=== PATIENT | male | born 1965 | race Caucasian/White ===

== ENCOUNTER 2017-10-31 04:23 | Emergency (ER) | payer OTHER ==
[~2017-10-31] VITALS: Ht 175.3 cm; Wt 91.2 kg
[~2017-10-31 04:23] MED LIST: ASPI325 PO; ASPI81CH; CYCL10; CYCL10 PO; HYDACE5 PO; Hydrocodone-Ap1 EA23 PO; KETO50 PO; MIRT15; MIRT30ST MM; Metoprolol Succ25 MG; NAPR500 PO; PENVK500 PO; RISP.25; RISP1 PO; RISP2 PO; RXCLIN PO; RXHYD5325 PO; RXOXYACE PO; RXPENVK250 PO; VENL25; VENL75ER PO
== END 2017-10-31 07:59 | disposition left against medical advice (07) ==
LOC: ER 04:23
DX: I74.3 Embolism and thrombosis of arteries of the lower extremities (principal); F32.9 Major depressive disorder, single episode, unspecified; F17.210 Nicotine dependence, cigarettes, uncomplicated; Z79.899 Other long term (current) drug therapy; Z79.82 Long term (current) use of aspirin
CPT/HCPCS: 99283

== ENCOUNTER 2017-11-20 17:32 | Emergency (ER) | payer OTHER ==
[~2017-11-20] VITALS: Ht 180.3 cm; Wt 83.0 kg
== END 2017-11-20 18:07 | disposition home or self-care (01) ==
LOC: ER 17:32
DX: R79.1 Abnormal coagulation profile (principal); F32.9 Major depressive disorder, single episode, unspecified; F17.210 Nicotine dependence, cigarettes, uncomplicated; Z79.899 Other long term (current) drug therapy; Z79.82 Long term (current) use of aspirin
CPT/HCPCS: 96372; 99283; J3430

== ENCOUNTER → 2020-05-01 | Outpatient (CLI) | payer OTHER, SELFPAY ==
[~2020-05-01] MED LIST changes: +ACET325; +ALBU90OI INH; +AMOCLA875 PO; +ASCO500 PO; +ATOR20 PO; +CLIN150 PO; +CLOP75 PO; +Colace100 MG PO; +Colace250 MG PO; +Coumadin3 MG PO; +ENOX100I SC; +FERROCITE324 MG PO; +FERROUS SULFAT325 M3 PO; +FERSU300 PO; +HYDCHL25 PO; +HYDR1TAB94 PO; +IBUP600 PO; +IRON18 MG PO; +METAMUCIL POWD575 GM PO; +METO100 PO; +METO100ER PO; +MIRT15 PO; +NICO21TP TOP; +OPTIFIBER PO; +PREPARATION H C26 GM TOP; +Percocet 5-3251 EACH PO; +RISP.5 PO; +VENL25 PO; +WARF3 PO; +WARF5 PO
[2020-05-01 17:53] LABS: Source, Urine Voided
[2020-05-01 19:05] LABS: Appearance, Urine Turbid (Clear); Bilirubin, Urine Neg (Neg); Blood, Urine 5+ (Neg); Color, Urine Amber (P-Yellow); Glucose Qualitative, Urine Neg (Neg); Ketones, Urine 1+ (Neg); Leukocyte Esterase, Urine 2+ (Neg); Nitrite, Urine Neg (Neg); Protein, Urine 3+ (Neg); Urobilinogen, Urine NORM (Normal)
[2020-05-01 19:25] LABS: Bacteria Many /hpf; Red Blood Cells, Urine TNTC /hpf (0-2); Squamous Epithelial Cells Not Seen /hpf (Few)
== END | disposition home or self-care (01) ==
LOC: LAB SHORT 17:51 → LAB 17:51
PROVIDERS: Family Medicine
DX: R10.2 Pelvic and perineal pain (principal); R31.9 Hematuria, unspecified
CPT/HCPCS: 81001; 87086; 87147

== ENCOUNTER 2020-07-17 14:38 | Emergency (ER) | payer MEDICARE, OTHER ==
[~2020-07-17] VITALS: Ht 177.8 cm; Wt 95.2 kg
[~2020-07-17 14:38] MED LIST changes: -ACET325; -ALBU90OI INH; -AMOCLA875 PO; -ASCO500 PO; -CLIN150 PO; -Colace100 MG PO; -Colace250 MG PO; -Coumadin3 MG PO; -ENOX100I SC; -FERROCITE324 MG PO; -FERROUS SULFAT325 M3 PO; -FERSU300 PO; -HYDCHL25 PO; -HYDR1TAB94 PO; -IBUP600 PO; -IRON18 MG PO; -METAMUCIL POWD575 GM PO; -METO100 PO; -MIRT15 PO; -NICO21TP TOP; -OPTIFIBER PO; -PREPARATION H C26 GM TOP; -Percocet 5-3251 EACH PO; -WARF5 PO
[2020-07-17 17:26] LABS: BASOPHILS ABSOLUTE AUTO 0.04 K/mm3 (0.00-0.23); BASOPHILS PERCENT AUTO 0 % (0-2); EOSINOPHILS ABSOLUTE AUTO 0.02 K/mm3 (0.00-0.68); EOSINOPHILS PERCENT AUTO 0 % (0-6); Hematocrit 43.8 % (37.0-53.0); Hemoglobin 14.9 g/dL (13.5-17.5); IMMATURE GRAN ABSOLUTE AUTO 0.02 K/mm3 (0.00-0.10); IMMATURE GRAN PERCENT AUTO 0 % (0-1); LYMPHOCYTES ABSOLUTE AUTO 1.43 K/mm3 (0.84-5.20); LYMPHOCYTES PERCENT AUTO 14 % (21-46); MONOCYTES ABSOLUTE AUTO 0.86 K/mm3 (0.16-1.47); MONOCYTES PERCENT AUTO 9 % (4-13); Mean Corpuscular HGB 29.4 pg (26.0-34.0); Mean Corpuscular Volume 87 fL (80-100); Mean Platelet Volume 9.7 fL (9.1-12.4); NEUTROPHILS ABSOLUTE AUTO 7.76 K/mm3 (1.96-9.15); NEUTROPHILS PERCENT AUTO 77 % (41-73); Platelet Count 305 K/mm3 (150-400); RDW Coefficient Variation 15.8 % (11.7-14.2); RDW Standard Deviation 49.9 fL (35.1-46.3); Red Blood Cell Count 5.06 M/mm3 (4.30-5.90); White Blood Cell Count 10.13 K/mm3 (4.00-11.30)
[2020-07-17 17:43] LABS: Alanine Aminotransfer (ALT/SGP 25 U/L (12-78); Albumin, Blood 3.5 g/dL (3.4-5.0); Albumin/Globulin Ratio 0.7 (0.8-1.8); Alk Phos 125 U/L (50-136); Anion Gap 7 mmol/L (6-16); Aspartate Aminotrans (AST/SGOT 16 U/L (12-37); Bilirubin, Total 0.8 mg/dL (0.1-1.0); Blood Urea Nitrogen 9 mg/dL (8-24); Bun/Creatinine Ratio 9.9 (12.0-20.0); CO2, Blood 26 mmol/L (21-32); Calcium, Blood 9.3 mg/dL (8.5-10.1); Chloride, Blood 100 mmol/L (98-108); Creatinine, Blood 0.91 mg/dL (0.60-1.20); Glomerular Filtration Rate >60 (60-); Glucose, Blood 63 mg/dL (70-99); Potassium, Blood 3.9 mmol/L (3.5-5.5); Sodium, Blood 133 mmol/L (136-145); Total Protein, Blood 8.5 g/dL (6.4-8.2)
[2020-07-17] MEDS ORDERED: HYDCHL25 PO (18:06)
[2020-07-17] MEDS ORDERED: ALBU90OI INH (18:07)
[2020-07-17] MEDS ORDERED: IRON18 MG PO (18:07)
[2020-07-17] MEDS ORDERED: Colace100 MG PO (18:07)
[2020-07-17] MEDS ORDERED: IBUP600 PO (21:36)
[2020-07-17] MEDS ORDERED: AMOCLA875 PO (21:36)
[2020-09-10] MEDS ORDERED: OPTIFIBER PO (13:00)
[2020-09-10] MEDS ORDERED: HYDR1TAB94 PO (13:00)
== END 2020-07-17 21:59 | disposition home or self-care (01) ==
LOC: ER 14:38
PROVIDERS: Emergency Medicine
DX: L02.01 Cutaneous abscess of face (principal); I10 Essential (primary) hypertension; E78.00 Pure hypercholesterolemia, unspecified; Z88.5 Allergy status to narcotic agent; Z79.01 Long term (current) use of anticoagulants; Z79.899 Other long term (current) drug therapy; Z87.891 Personal history of nicotine dependence
CPT/HCPCS: 36415; 70487; 80053; 85025; 96365; 96375; 99284-25; J0295; J1885; Q9967

== ENCOUNTER 2020-07-23 07:20 | Day surgery (SDC) | payer MEDICARE, SELFPAY ==
--- NOTE | 2020-07-22 13:51 | NUR ---
PT DID NOT SHOW FOR 1000 APPOINTMENT TODAY. SPOKE WITH PT ON THE PHONE. THERE IS SOME MISCOMMUNICATION WITH [facility]LER'S ORDERS TO THE PATIENT AND CHANDLER'S ORDERS TO OUR [facility]. PT FILLED A RX FOR LOVENOX AT [facility] TODAY AND DID PART OF HIS LOVENOX THIS MORNING AND THE OTHER PART TONIGHT. PT TOOK 5MG LOVENOX AT 1100 TODAY. PT STATES HE WAS INSTRUCTED TO DO THIS BY HIS DR. PT WAS ALSO ADVISED BY JA MORENO AT [facility] THAT HE IS TO COME TO [facility] FOR HIS INJECTIONS AND INR CHECKS. PT IS PLANNING TO COME INTO [facility] TOMORROW 07/23/20 AT 1000 FOR US TO DO HIS LABS AND LOVENOX ORDERED. RN TO CALL AND CLARIFY WITH CHANDLER FOR FUTURE APPOINTMENTS AFTER 07/23/20. PT APPRECIATIVE OF THE PLAN AND WILL BE HERE TOMORROW.
--- NOTE | 2020-07-22 14:02 | NUR ---
CALLED [facility] AND SPOKE WITH JA MORENO CARE MANAGEMENT FOR DR SHERLYN MONTALVO REGARDING PT NO SHOW AND THAT PT FILLED AN RX AND RECEIVED TWO INJECTIONS AND DOING THE INJECTIONS TODAY THEN PLANNING ON COMING TO [facility] TOMORROW FOR US TO ASSUME CARE OF PT'S LOVENOX BRIDGING AND INR CHECKS. JA MORENO VERIFIED THAT PT IS TO COME TO [facility]. PT WAS TOLD NOT TO FILL ANY RX'S THAT WAS THE ORIGNAL PLAN, BUT THAT PLAN LATER WAS CANCELLED PT CANNOT AFFORD RX THROUGH THE PHARMACY. WILL EDUCATE PT TOMORROW AT [facility] APPOINTMENT. WILL NOTIFY PT'S PCP.
[~2020-07-23 07:20] MED LIST changes: +ALBU90OI INH; +AMOCLA875 PO; +Colace100 MG PO; +HYDCHL25 PO; +IBUP600 PO; +IRON18 MG PO
[2020-07-23 10:11] LABS: Hematocrit 46.1 % (37.0-53.0); Hemoglobin 15.4 g/dL (13.5-17.5); Mean Corpuscular HGB 29.4 pg (26.0-34.0); Mean Corpuscular HGB Conc 33.4 g/dL (31.5-36.5); Mean Corpuscular Volume 88 fL (80-100); Mean Platelet Volume 9.5 fL (9.1-12.4); Platelet Count 345 K/mm3 (150-400); RDW Coefficient Variation 15.7 % (11.7-14.2); RDW Standard Deviation 50.8 fL (35.1-46.3); Red Blood Cell Count 5.23 M/mm3 (4.30-5.90); White Blood Cell Count 8.11 K/mm3 (4.00-11.30)
[2020-07-23 10:25] LABS: Anion Gap 6 mmol/L (6-16); Blood Urea Nitrogen 8 mg/dL (8-24); Bun/Creatinine Ratio 7.2 (12.0-20.0); CO2, Blood 31 mmol/L (21-32); Calcium, Blood 10.2 mg/dL (8.5-10.1); Chloride, Blood 101 mmol/L (98-108); Creatinine, Blood 1.11 mg/dL (0.60-1.20); Glomerular Filtration Rate >60 (60-); Glucose, Blood 103 mg/dL (70-99); International Normalized Ratio 1.19; Prothrombin Time Results 12.6 Sec (9.7-11.5); Sodium, Blood 138 mmol/L (136-145)
[2020-07-23] MEDS ORDERED: WARF5 PO (10:50)
[2020-07-23] MEDS ORDERED: ENOX100I SC (10:51)
[2020-07-23] MEDS ORDERED: MIRT15 PO (10:52)
[2020-07-23] MEDS ORDERED: METAMUCIL POWD575 GM PO (10:52)
--- NOTE | 2020-07-23 11:04 | NUR ---
INR RESULTS FAXED TO DR NAEEM WADSWORTH PT'S PCP FOR COUMADIN DOSE MONITORING.
[2020-07-24] MEDS ORDERED: ENOX100I SC (10:48)
[2020-09-10] MEDS ORDERED: OPTIFIBER PO (13:00)
[2020-09-10] MEDS ORDERED: HYDR1TAB94 PO (13:00)
== END 2020-07-23 10:40 | disposition home or self-care (01) ==
LOC: ATC 07:20
PROVIDERS: Internal Medicine
DX: R79.1 Abnormal coagulation profile (principal); F17.210 Nicotine dependence, cigarettes, uncomplicated; I10 Essential (primary) hypertension; E78.5 Hyperlipidemia, unspecified; J44.9 Chronic obstructive pulmonary disease, unspecified; Z86.718 Personal history of other venous thrombosis and embolism; Z98.62 Peripheral vascular angioplasty status
CPT/HCPCS: 80048; 85027; 85610; 96372; J1650

== ENCOUNTER 2020-07-24 09:16 | Day surgery (SDC) | payer MEDICARE, SELFPAY ==
[~2020-07-24 09:16] MED LIST changes: +ENOX100I SC; +METAMUCIL POWD575 GM PO; +MIRT15 PO; +WARF5 PO
[2020-07-24] MEDS ORDERED: ENOX100I SC (10:48)
--- NOTE | 2020-07-24 10:50 | NUR ---
INR 1.2
[2020-07-25] MEDS ORDERED: Coumadin3 MG PO (11:06)
[2020-09-10] MEDS ORDERED: HYDR1TAB94 PO (13:00)
[2020-09-10] MEDS ORDERED: OPTIFIBER PO (13:00)
== END 2020-07-24 10:48 | disposition home or self-care (01) ==
LOC: ATC 09:16
DX: T82.868A Thrombosis due to vascular prosthetic devices, implants and grafts, initial encounter (principal); K12.2 Cellulitis and abscess of mouth; I10 Essential (primary) hypertension; E78.5 Hyperlipidemia, unspecified; J44.9 Chronic obstructive pulmonary disease, unspecified; F17.210 Nicotine dependence, cigarettes, uncomplicated; Z86.718 Personal history of other venous thrombosis and embolism; Z88.5 Allergy status to narcotic agent; Z79.01 Long term (current) use of anticoagulants
CPT/HCPCS: 36416; 85610; 96372; J1650

== ENCOUNTER 2020-07-25 00:17 | Day surgery (SDC) | payer MEDICARE, SELFPAY ==
[2020-07-25] MEDS ORDERED: Coumadin3 MG PO (11:06)
[2020-07-26] MEDS ORDERED: FERROCITE324 MG PO (10:27)
[2020-09-10] MEDS ORDERED: OPTIFIBER PO (13:00)
[2020-09-10] MEDS ORDERED: HYDR1TAB94 PO (13:00)
== END 2020-07-25 09:40 | disposition home or self-care (01) ==
LOC: ATC 00:17
DX: T82.868A Thrombosis due to vascular prosthetic devices, implants and grafts, initial encounter (principal); I10 Essential (primary) hypertension; E78.5 Hyperlipidemia, unspecified; J44.9 Chronic obstructive pulmonary disease, unspecified; F17.210 Nicotine dependence, cigarettes, uncomplicated; Z86.718 Personal history of other venous thrombosis and embolism; Z95.820 Peripheral vascular angioplasty status with implants and grafts; Z88.5 Allergy status to narcotic agent; Z79.01 Long term (current) use of anticoagulants
CPT/HCPCS: 36416; 85610; 96372; J1650

== ENCOUNTER 2020-07-26 00:07 | Day surgery (SDC) | payer MEDICARE, SELFPAY ==
[~2020-07-26 00:07] MED LIST changes: +Coumadin3 MG PO
[2020-07-26] MEDS ORDERED: FERROCITE324 MG PO (10:27)
[2020-09-10] MEDS ORDERED: HYDR1TAB94 PO (13:00)
[2020-09-10] MEDS ORDERED: OPTIFIBER PO (13:00)
== END 2020-07-26 10:28 | disposition home or self-care (01) ==
LOC: ATC 00:07
DX: R79.1 Abnormal coagulation profile (principal); I10 Essential (primary) hypertension; J44.9 Chronic obstructive pulmonary disease, unspecified; E78.5 Hyperlipidemia, unspecified; F17.210 Nicotine dependence, cigarettes, uncomplicated; Z98.62 Peripheral vascular angioplasty status; Z86.718 Personal history of other venous thrombosis and embolism; Z79.01 Long term (current) use of anticoagulants; Z79.02 Long term (current) use of antithrombotics/antiplatelets
CPT/HCPCS: 36416; 85610; 96372; J1650

== ENCOUNTER 2020-07-27 00:41 | Day surgery (SDC) | payer MEDICARE, SELFPAY ==
[~2020-07-27 00:41] MED LIST changes: +FERROCITE324 MG PO
[2020-09-10] MEDS ORDERED: OPTIFIBER PO (13:00)
[2020-09-10] MEDS ORDERED: HYDR1TAB94 PO (13:00)
== END 2020-07-27 10:20 | disposition home or self-care (01) ==
LOC: ATC 00:41
DX: T82.868A Thrombosis due to vascular prosthetic devices, implants and grafts, initial encounter (principal); I10 Essential (primary) hypertension; E78.5 Hyperlipidemia, unspecified; J44.9 Chronic obstructive pulmonary disease, unspecified; F17.210 Nicotine dependence, cigarettes, uncomplicated; Z86.718 Personal history of other venous thrombosis and embolism; Z95.820 Peripheral vascular angioplasty status with implants and grafts; Z88.5 Allergy status to narcotic agent; Z79.01 Long term (current) use of anticoagulants; Z79.02 Long term (current) use of antithrombotics/antiplatelets
CPT/HCPCS: 36416; 85610; 96372; J1650

== ENCOUNTER 2020-07-28 14:01 | Day surgery (SDC) | payer MEDICARE, SELFPAY ==
[2020-09-10] MEDS ORDERED: HYDR1TAB94 PO (13:00)
[2020-09-10] MEDS ORDERED: OPTIFIBER PO (13:00)
== END 2020-07-28 14:13 | disposition home or self-care (01) ==
LOC: ATC 14:01
DX: T82.868A Thrombosis due to vascular prosthetic devices, implants and grafts, initial encounter (principal); J44.9 Chronic obstructive pulmonary disease, unspecified; E78.5 Hyperlipidemia, unspecified; I10 Essential (primary) hypertension; M19.90 Unspecified osteoarthritis, unspecified site; F17.210 Nicotine dependence, cigarettes, uncomplicated; Z88.5 Allergy status to narcotic agent; Z79.02 Long term (current) use of antithrombotics/antiplatelets; Z79.01 Long term (current) use of anticoagulants; Z86.718 Personal history of other venous thrombosis and embolism
CPT/HCPCS: 36416; 85610; 96372; J1650

== ENCOUNTER 2020-07-29 14:00 | Day surgery (SDC) | payer MEDICARE, SELFPAY ==
--- NOTE | 2020-07-29 15:42 | NUR ---
FINGERSTICK INR RESULTS FROM TODAY AND YESTERDAY FAXED TO DR. GREER'S OFFICE.
[2020-09-10] MEDS ORDERED: OPTIFIBER PO (13:00)
[2020-09-10] MEDS ORDERED: HYDR1TAB94 PO (13:00)
== END 2020-07-29 14:01 | disposition home or self-care (01) ==
LOC: ATC 14:00
DX: T82.868A Thrombosis due to vascular prosthetic devices, implants and grafts, initial encounter (principal); I48.91 Unspecified atrial fibrillation; Z79.01 Long term (current) use of anticoagulants; J44.9 Chronic obstructive pulmonary disease, unspecified; E78.5 Hyperlipidemia, unspecified; I10 Essential (primary) hypertension; F17.200 Nicotine dependence, unspecified, uncomplicated; M19.90 Unspecified osteoarthritis, unspecified site
CPT/HCPCS: 36416; 85610; 96372; J1650

== ENCOUNTER 2020-07-30 00:40 | Day surgery (SDC) | payer MEDICARE, SELFPAY ==
--- NOTE | 2020-07-30 07:45 | NUR ---
FINGERSTICK INR = 1.8.
[2020-09-10] MEDS ORDERED: HYDR1TAB94 PO (13:00)
[2020-09-10] MEDS ORDERED: OPTIFIBER PO (13:00)
== END 2020-07-30 07:45 | disposition home or self-care (01) ==
LOC: ATC 00:40
DX: T82.868A Thrombosis due to vascular prosthetic devices, implants and grafts, initial encounter (principal); J44.9 Chronic obstructive pulmonary disease, unspecified; I10 Essential (primary) hypertension; E78.5 Hyperlipidemia, unspecified; M19.90 Unspecified osteoarthritis, unspecified site; F17.210 Nicotine dependence, cigarettes, uncomplicated; Z86.718 Personal history of other venous thrombosis and embolism; Z79.02 Long term (current) use of antithrombotics/antiplatelets; Z79.01 Long term (current) use of anticoagulants; Z88.5 Allergy status to narcotic agent
CPT/HCPCS: 36416; 85610; 96372; J1650

== ENCOUNTER 2020-07-31 07:18 | Day surgery (SDC) | payer MEDICARE, SELFPAY ==
--- NOTE | 2020-07-31 11:59 | NUR ---
FINGERSTICK INR 2.0 TODAY
--- NOTE | 2020-07-31 12:05 | NUR ---
INR RESULTS FAXED TO PCP DR WADSWORTH
[2020-09-10] MEDS ORDERED: HYDR1TAB94 PO (13:00)
[2020-09-10] MEDS ORDERED: OPTIFIBER PO (13:00)
== END 2020-07-31 11:56 | disposition home or self-care (01) ==
LOC: ATC 07:18
DX: T82.868A Thrombosis due to vascular prosthetic devices, implants and grafts, initial encounter (principal); I10 Essential (primary) hypertension; E78.5 Hyperlipidemia, unspecified; J44.9 Chronic obstructive pulmonary disease, unspecified; F17.210 Nicotine dependence, cigarettes, uncomplicated; Z86.718 Personal history of other venous thrombosis and embolism
CPT/HCPCS: 36416; 85610; 96372; J1650

== ENCOUNTER 2020-08-01 07:24 | Day surgery (SDC) | payer MEDICARE ==
[2020-09-10] MEDS ORDERED: OPTIFIBER PO (13:00)
[2020-09-10] MEDS ORDERED: HYDR1TAB94 PO (13:00)
== END 2020-08-01 07:40 | disposition home or self-care (01) ==
LOC: ATC 07:24
DX: T82.868A Thrombosis due to vascular prosthetic devices, implants and grafts, initial encounter (principal); I48.91 Unspecified atrial fibrillation; I10 Essential (primary) hypertension; E78.5 Hyperlipidemia, unspecified; J44.9 Chronic obstructive pulmonary disease, unspecified; M19.90 Unspecified osteoarthritis, unspecified site; F17.210 Nicotine dependence, cigarettes, uncomplicated; Z86.718 Personal history of other venous thrombosis and embolism; Z79.01 Long term (current) use of anticoagulants; Y83.8 Other surgical procedures as the cause of abnormal reaction of the patient, or of later complication, without mention of misadventure at the time of the procedure
CPT/HCPCS: 36416; 85610; 99211; J1650

== ENCOUNTER 2020-08-22 23:57 | Emergency (ER) | payer MEDICARE, SELFPAY ==
[~2020-08-22] VITALS: Ht 177.8 cm; Wt 90.7 kg
[2020-08-23 00:27] LABS: BASOPHILS ABSOLUTE AUTO 0.03 K/mm3 (0.00-0.23); BASOPHILS PERCENT AUTO 0 % (0-2); EOSINOPHILS PERCENT AUTO 3 % (0-6); Hematocrit 40.7 % (37.0-53.0); Hemoglobin 14.1 g/dL (13.5-17.5); IMMATURE GRAN ABSOLUTE AUTO 0.02 K/mm3 (0.00-0.10); IMMATURE GRAN PERCENT AUTO 0 % (0-1); LYMPHOCYTES ABSOLUTE AUTO 2.96 K/mm3 (0.84-5.20); LYMPHOCYTES PERCENT AUTO 44 % (21-46); MONOCYTES ABSOLUTE AUTO 0.59 K/mm3 (0.16-1.47); MONOCYTES PERCENT AUTO 9 % (4-13); Mean Corpuscular HGB 29.7 pg (26.0-34.0); Mean Corpuscular HGB Conc 34.6 g/dL (31.5-36.5); Mean Corpuscular Volume 86 fL (80-100); Mean Platelet Volume 10.1 fL (9.1-12.4); NEUTROPHILS ABSOLUTE AUTO 2.99 K/mm3 (1.96-9.15); NEUTROPHILS PERCENT AUTO 44 % (41-73); Platelet Count 222 K/mm3 (150-400); RDW Coefficient Variation 15.8 % (11.7-14.2); RDW Standard Deviation 49.8 fL (35.1-46.3); Red Blood Cell Count 4.74 M/mm3 (4.30-5.90); White Blood Cell Count 6.79 K/mm3 (4.00-11.30)
[2020-08-23 00:42] LABS: International Normalized Ratio 3.07; Prothrombin Time Results 30.8 Sec (9.7-11.5)
[2020-08-23 00:43] LABS: Alanine Aminotransfer (ALT/SGP 27 U/L (12-78); Albumin, Blood 3.6 g/dL (3.4-5.0); Albumin/Globulin Ratio 0.9 (0.8-1.8); Alk Phos 106 U/L (50-136); Anion Gap 6 mmol/L (6-16); Aspartate Aminotrans (AST/SGOT 17 U/L (12-37); Bilirubin, Total 0.3 mg/dL (0.1-1.0); Blood Urea Nitrogen 8 mg/dL (8-24); Bun/Creatinine Ratio 10.4 (12.0-20.0); CO2, Blood 29 mmol/L (21-32); Calcium, Blood 8.7 mg/dL (8.5-10.1); Chloride, Blood 99 mmol/L (98-108); Creatinine, Blood 0.77 mg/dL (0.60-1.20); Ethanol (Alcohol), Blood, Med 212 mg/dL; Globulin, Blood 4.2 g/dL (2.2-4.0); Glomerular Filtration Rate >60 (60-); Glucose, Blood 90 mg/dL (70-99); Potassium, Blood 3.3 mmol/L (3.5-5.5); Sodium, Blood 134 mmol/L (136-145); Total Protein, Blood 7.8 g/dL (6.4-8.2)
[2020-08-23] MEDS ORDERED: PREPARATION H C26 GM TOP (01:06)
[2020-08-23] MEDS ORDERED: Colace250 MG PO (01:06)
[2020-09-10] MEDS ORDERED: HYDR1TAB94 PO (13:00)
[2020-09-10] MEDS ORDERED: OPTIFIBER PO (13:00)
== END 2020-08-23 01:25 | disposition home or self-care (01) ==
LOC: ER 23:57
PROVIDERS: Emergency Medicine
DX: K92.2 Gastrointestinal hemorrhage, unspecified (principal); F10.129 Alcohol abuse with intoxication, unspecified; K64.9 Unspecified hemorrhoids; Z79.899 Other long term (current) drug therapy; Z79.01 Long term (current) use of anticoagulants; Z88.5 Allergy status to narcotic agent; Y90.7 Blood alcohol level of 200-239 mg/100 ml
CPT/HCPCS: 36415; 80053; 85025; 85610; 86850; 86900; 86901; 99283; G0480

== ENCOUNTER 2020-09-01 06:52 | Emergency (ER) | payer MEDICARE, OTHER ==
[~2020-09-01] VITALS: Ht 182.9 cm; Wt 104.3 kg
[~2020-09-01 06:52] MED LIST changes: +Colace250 MG PO; +PREPARATION H C26 GM TOP
[2020-09-01] MEDS ORDERED: FERSU300 PO (07:06)
[2020-09-01] MEDS ORDERED: METO100 PO (07:06)
[2020-09-01] MEDS ORDERED: CLIN150 PO (07:10)
[2020-09-01] MEDS ORDERED: ASPI325 PO (07:10)
[2020-09-01] MEDS ORDERED: ACET325 (07:11)
[2020-09-10] MEDS ORDERED: OPTIFIBER PO (13:00)
[2020-09-10] MEDS ORDERED: HYDR1TAB94 PO (13:00)
== END 2020-09-01 07:41 | disposition home or self-care (01) ==
LOC: ER 06:52
DX: M54.6 Pain in thoracic spine (principal); F41.9 Anxiety disorder, unspecified; F17.210 Nicotine dependence, cigarettes, uncomplicated; Z79.82 Long term (current) use of aspirin
CPT/HCPCS: 99283; 99284

== ENCOUNTER 2020-09-05 16:04 | Observation (INO) | payer MEDICARE, SELFPAY ==
[~2020-09-05] VITALS: Ht 177.8 cm; Wt 91.2 kg
[~2020-09-05 16:04] MED LIST changes: +ACET325; +CLIN150 PO; +FERSU300 PO; +METO100 PO
[2020-09-05 16:49] LABS: BASOPHILS ABSOLUTE AUTO 0.02 K/mm3 (0.00-0.23); BASOPHILS PERCENT AUTO 0 % (0-2); EOSINOPHILS ABSOLUTE AUTO 0.03 K/mm3 (0.00-0.68); EOSINOPHILS PERCENT AUTO 0 % (0-6); Hemoglobin 7.2 g/dL (13.5-17.5); IMMATURE GRAN ABSOLUTE AUTO 0.03 K/mm3 (0.00-0.10); IMMATURE GRAN PERCENT AUTO 0 % (0-1); LYMPHOCYTES ABSOLUTE AUTO 1.35 K/mm3 (0.84-5.20); LYMPHOCYTES PERCENT AUTO 18 % (21-46); MONOCYTES ABSOLUTE AUTO 0.45 K/mm3 (0.16-1.47); MONOCYTES PERCENT AUTO 6 % (4-13); Mean Corpuscular HGB 30.6 pg (26.0-34.0); Mean Corpuscular HGB Conc 31.3 g/dL (31.5-36.5); Mean Corpuscular Volume 98 fL (80-100); Mean Platelet Volume 9.9 fL (9.1-12.4); NEUTROPHILS ABSOLUTE AUTO 5.73 K/mm3 (1.96-9.15); NEUTROPHILS PERCENT AUTO 75 % (41-73); Platelet Count 381 K/mm3 (150-400); RDW Coefficient Variation 19.5 % (11.7-14.2); RDW Standard Deviation 69.1 fL (35.1-46.3); Red Blood Cell Count 2.35 M/mm3 (4.30-5.90); White Blood Cell Count 7.61 K/mm3 (4.00-11.30)
[2020-09-05 17:06] LABS: Alanine Aminotransfer (ALT/SGP 24 U/L (12-78); Albumin/Globulin Ratio 0.7 (0.8-1.8); Alk Phos 100 U/L (50-136); Anion Gap 7 mmol/L (6-16); Aspartate Aminotrans (AST/SGOT 36 U/L (12-37); Bilirubin, Total 0.4 mg/dL (0.1-1.0); Blood Urea Nitrogen 12 mg/dL (8-24); Bun/Creatinine Ratio 13.2 (12.0-20.0); CO2, Blood 21 mmol/L (21-32); Calcium, Blood 8.6 mg/dL (8.5-10.1); Chloride, Blood 107 mmol/L (98-108); Creatinine, Blood 0.91 mg/dL (0.60-1.20); Globulin, Blood 4.1 g/dL (2.2-4.0); Glomerular Filtration Rate >60 (60-); Glucose, Blood 118 mg/dL (70-99); Potassium, Blood 3.6 mmol/L (3.5-5.5); Sodium, Blood 135 mmol/L (136-145); Total Protein, Blood 7.1 g/dL (6.4-8.2); Troponin I <0.015 ng/mL (0.000-0.040)
[2020-09-05 17:25] LABS: International Normalized Ratio 2.02; Prothrombin Time Results 20.8 Sec (9.7-11.5)
[2020-09-05] MEDS ORDERED: CYCL10 PO (20:03)
[2020-09-05 21:14] LABS: Hematocrit 21.7 % (37.0-53.0); Hemoglobin 6.9 g/dL (13.5-17.5)
--- NOTE | 2020-09-05 22:20 | NUR ---
PHYSICIAN CONTACT LEADER WRITER PROVIDER NOTIFIED HGB DECREASED TO 6.9 FROM 7.2. ORDERS TO TRANSFUSE 1 UNIT PRBC.
[2020-09-06 03:05] LABS: BASOPHILS ABSOLUTE AUTO 0.01 K/mm3 (0.00-0.23); BASOPHILS PERCENT AUTO 0 % (0-2); EOSINOPHILS ABSOLUTE AUTO 0.08 K/mm3 (0.00-0.68); EOSINOPHILS PERCENT AUTO 1 % (0-6); Hematocrit 23.9 % (37.0-53.0); Hemoglobin 7.5 g/dL (13.5-17.5); IMMATURE GRAN ABSOLUTE AUTO 0.01 K/mm3 (0.00-0.10); IMMATURE GRAN PERCENT AUTO 0 % (0-1); LYMPHOCYTES ABSOLUTE AUTO 1.48 K/mm3 (0.84-5.20); LYMPHOCYTES PERCENT AUTO 26 % (21-46); MONOCYTES ABSOLUTE AUTO 0.69 K/mm3 (0.16-1.47); MONOCYTES PERCENT AUTO 12 % (4-13); Mean Corpuscular HGB 29.8 pg (26.0-34.0); Mean Corpuscular HGB Conc 31.4 g/dL (31.5-36.5); Mean Corpuscular Volume 95 fL (80-100); Mean Platelet Volume 9.2 fL (9.1-12.4); NEUTROPHILS ABSOLUTE AUTO 3.54 K/mm3 (1.96-9.15); NEUTROPHILS PERCENT AUTO 61 % (41-73); Platelet Count 367 K/mm3 (150-400); RDW Standard Deviation 64.5 fL (35.1-46.3); Red Blood Cell Count 2.52 M/mm3 (4.30-5.90); White Blood Cell Count 5.81 K/mm3 (4.00-11.30)
[2020-09-06 03:26] LABS: Anion Gap 4 mmol/L (6-16); Blood Urea Nitrogen 10 mg/dL (8-24); Bun/Creatinine Ratio 11.9 (12.0-20.0); CO2, Blood 29 mmol/L (21-32); Calcium, Blood 8.5 mg/dL (8.5-10.1); Chloride, Blood 109 mmol/L (98-108); Creatinine, Blood 0.84 mg/dL (0.60-1.20); Glomerular Filtration Rate >60 (60-); Glucose, Blood 90 mg/dL (70-99); Potassium, Blood 3.3 mmol/L (3.5-5.5); Sodium, Blood 142 mmol/L (136-145)
--- NOTE | 2020-09-06 04:19 | NUR ---
CHIEF SCIENTIFIC OFFICER SUMMARY A/O X4, PLEASANT AND COOPERATIVE WITH CARE. DENIES PAIN OR SOB AT THIS TIME. 1 UNIT PRBC GIVEN THIS SHIFT, HGB LEVEL AT 7.5 THIS AM. CURRENTLY NPO, NS WITH KCL RUNNING AT 75. VSS, NO ACUTE CHANGES AT THIS TIME. BED IN LOWEST POSITION WITH CALL LIGHT IN REACH. WILL CONTINUE TO MONITOR AND REPORT TO ONCOMING RN.
[2020-09-06 09:25] LABS: Hematocrit 24.9 % (37.0-53.0); Hemoglobin 7.9 g/dL (13.5-17.5)
[2020-09-06 10:56] LABS: International Normalized Ratio 1.86; Prothrombin Time Results 19.2 Sec (9.7-11.5)
--- NOTE | 2020-09-06 16:41 | NUR ---
Met with pt today to review code status at pt's request. Upon arriving to his hospital room, found pt sitting on a bench. He greeted me with a smile and we began to talk about what an advanced directive is. He denies pain. He is alert and oriented. Partway through the discussion, pt began to state the idea of all of this was giving him a headache. He then discussed bits and pieces of his life. He talked about some of his family dynamics, and states he "only trusts his uncle and his sister", yet also states he doesn't want to be a burden on them. He agrees to meet tomorow and go over the paperwork then.
--- NOTE | 2020-09-06 18:07 | NUR ---
PT ALERT AND ORIENTED X4, LABILE AND TANGENTIAL. PT IV RUNNING AT TKO AND WNL. PT STATES HE IS VERY WORRIED ABOUT BEING SICHARGED EARLY. NO DICHARGE PLANS ARE IN PLACE SO FAR. PT HAS NOT EXPERIENCED RECTAL BLEEDING THIS SHIFT AND MALES O COMPLAINTS AT THIS TIME. HIS BED IS IN LOW POSITION AND CALL LIGHT WITHIN REACH. STAFF WILL CONT TO MONITOR.
[2020-09-07 05:27] LABS: Hematocrit 24.5 % (37.0-53.0); Hemoglobin 7.7 g/dL (13.5-17.5)
[2020-09-07 06:19] LABS: Anion Gap 3 mmol/L (6-16); Blood Urea Nitrogen 11 mg/dL (8-24); Bun/Creatinine Ratio 12.2 (12.0-20.0); CO2, Blood 28 mmol/L (21-32); Calcium, Blood 8.4 mg/dL (8.5-10.1); Chloride, Blood 111 mmol/L (98-108); Glomerular Filtration Rate >60 (60-); Glucose, Blood 86 mg/dL (70-99); Potassium, Blood 3.5 mmol/L (3.5-5.5); Sodium, Blood 142 mmol/L (136-145)
--- NOTE | 2020-09-07 07:15 | NUR ---
FILLER SHAKER SUMMARY PT AAOX4 AND PLEASANT. STANDBY ASSIST TO THE BATHROOM. NO BLOOD NOTED IN STOOLS TONIGHT. HGB STABLE 7.7 DOWN FROM 7.9. PT A BIT ANXIOUS TONIGHT AND HAD TROUBLE SLEEPING. GAVE 0.5 MG ATIVAN IV PER EMAR WHICH HELPED PT RELAX AND GET SOME SLEEP. VSS, WILL CONTINUE TO MONITOR.
[2020-09-07 13:59] LABS: Hematocrit 25.7 % (37.0-53.0); Hemoglobin 8.1 g/dL (13.5-17.5)
[2020-09-07] MEDS ORDERED: ENOX100I SC (15:34)
[2020-09-07 15:58] LABS: Influenza A, PCR NEGATIVE (NEGATIVE); Influenza B, PCR NEGATIVE (NEGATIVE); Resp Syncytial Virus, PCR NEGATIVE (NEGATIVE); SARS-Cov-2 (COVID-19) PCR, MMC NEGATIVE (NEGATIVE)
--- NOTE | 2020-09-07 17:02 | NUR ---
DISCHARGE SUMMARY PT DISCHARGE FROM HOSPITAL AT APPROX 1644. PT A&OX4, ABLE TO MAKE NEEDS KNOWN. NO ACUTE CHANGES NOTED TO PATIENT PRIOR TO DISCHARGE. DISCHARGE INSTRUCTIONS AND TEACHINGS GIVEN TO PATIENT. PT VERBALIZED UNDERSTANDING OF DISCHARGE ORDERS. PT's MED REC FAXED TO STEPHANIA MCKEON AT THE [facility] WITH VOUCHER FOR LOVENOX PROVIDED BY MARY CERON RN. PT ESCORTED BY STAFF TO HOSPITAL ENTRANCE/EXIT.
--- NOTE | 2020-09-07 18:10 | NUR ---
APPROVAL FOR PHARMACY VOUCHER [facility] GAME SHOW HOSTIGNACIO, CALLED TO STATE THAT THE VOUCHER FOR THE PTS LOVENOX ORDER WOULD BE MORE THAN EXPECTED. [place], NURSING BARREL BURNER NOTIFIED. PT HAS NO TRANSPORTATION, DUE TO PUBLIC TRANSPORT BEING DOWN FOR THE WEEKEND, SO PT WOULD BE UNABLE TO COME INTO THE [facility] OR ER FOR INJECTIONS. APPROVAL RECIEVED FROM [facility] TO FILL THE PRESCRIPTION & [facility] NOTIFIED. PT ALSO NOTIFIED.
[2020-09-10] MEDS ORDERED: OPTIFIBER PO (13:00)
[2020-09-10] MEDS ORDERED: HYDR1TAB94 PO (13:00)
== END 2020-09-07 16:37 | disposition home or self-care (01) ==
LOC: ER 16:04 → MEDS 16:05 → ENPENDDIS 09-07 15:10 → MEDS 09-07 16:37
PROVIDERS: Family Medicine; Nurse Practitioner Acute Care; Physician Assistant; Surgery; ADMIT Internal Medicine
DX: D62 Acute posthemorrhagic anemia (principal); K64.8 Other hemorrhoids; K64.4 Residual hemorrhoidal skin tags; I73.9 Peripheral vascular disease, unspecified; I10 Essential (primary) hypertension; E78.5 Hyperlipidemia, unspecified; K59.09 Other constipation; F32.9 Major depressive disorder, single episode, unspecified; F41.0 Panic disorder [episodic paroxysmal anxiety]; F17.210 Nicotine dependence, cigarettes, uncomplicated; M79.605 Pain in left leg; M79.604 Pain in right leg; F10.11 Alcohol abuse, in remission; Z79.02 Long term (current) use of antithrombotics/antiplatelets; Z79.01 Long term (current) use of anticoagulants; Z86.718 Personal history of other venous thrombosis and embolism; Z20.822 Contact with and (suspected) exposure to COVID-19; Z86.010 Personal history of colon polyps; Z87.19 Personal history of other diseases of the digestive system; Z88.5 Allergy status to narcotic agent
CPT/HCPCS: 0241U; 36415; 36430; 71045; 80048; 80053; 82272; 84484; 85014; 85018; 85025; 85610; 86850; 86900; 86901; 86923; 93005; 93010; 93970; 96372; 96374; 99285-25; A9270; G0378; J1650; J2060; J3480; J7050; P9016

== ENCOUNTER 2020-09-11 06:41 | Day surgery (SDC) | payer MEDICARE ==
[~2020-09-11] VITALS: Ht 177.8 cm; Wt 91.4 kg
[~2020-09-11 06:41] MED LIST changes: +HYDR1TAB94 PO; +OPTIFIBER PO
--- NOTE | 2020-09-11 11:26 | NUR ---
Patient up to Ambulate independently. Gait steady. Discharge instructions reviewed with patient. Patient verbalizes understanding. Copy given to patient to take home. Discharged via wheelchair to private car for ride home.
[2020-09-12] MEDS ORDERED: WARF5 PO (14:54)
== END 2020-09-11 23:18 | disposition home or self-care (01) ==
LOC: ORD 06:41 → ORSCMMR 06:41 → ORD 07:30
PROVIDERS: Surgery
PROC: 06BY0ZC Excision of Hemorrhoidal Plexus, Open Approach (ICD-10-PCS; principal; 2020-09-11 07:30)
DX: K64.8 Other hemorrhoids (principal); K64.4 Residual hemorrhoidal skin tags; D50.0 Iron deficiency anemia secondary to blood loss (chronic); I10 Essential (primary) hypertension; J44.9 Chronic obstructive pulmonary disease, unspecified; F17.210 Nicotine dependence, cigarettes, uncomplicated; E78.5 Hyperlipidemia, unspecified; Z79.899 Other long term (current) drug therapy; Z79.01 Long term (current) use of anticoagulants
CPT/HCPCS: 88304; A9270; J0694; J1100; J2405; J2704; J3010; J7120

== ENCOUNTER 2020-09-12 00:34 | Day surgery (SDC) | payer MEDICARE ==
--- NOTE | 2020-09-12 14:02 | NUR ---
SPOKE WITH GABE AT DR. HURTADO'S OFFICE PER PT'S REQUEST RE: LOVENOX DOSE. HE STATES THAT HE WAS TAKING LOVENOX 90 MG BID PRIOR TO SURGERY AND IS CONCERNED THE 100 MG OF LOVENOX DAILY NOW WILL NOT BE ENOUGH. PER GABE WHO SPOKE TO DR. HURTADO TO CLARIFY, PT IS TO RECEIVE 100 MG LOVENOX DAILY. SPO IS MANAGING COUMADIN DOSING AND PT SPOKE WITH [employer] STAFF WHILE HE WAS IN THE [facility]. HE WILL TAKE COUMADIN 5 MG PO DAILY STARTING TONIGHT. FIRST INR WILL BE DONE ON Thursday09/14/20.
[2020-09-12] MEDS ORDERED: WARF5 PO (14:54)
== END 2020-09-12 14:18 | disposition home or self-care (01) ==
LOC: ATC 00:34
DX: I48.91 Unspecified atrial fibrillation (principal); J44.9 Chronic obstructive pulmonary disease, unspecified; I10 Essential (primary) hypertension; E78.5 Hyperlipidemia, unspecified; F17.210 Nicotine dependence, cigarettes, uncomplicated; Z88.5 Allergy status to narcotic agent; Z86.718 Personal history of other venous thrombosis and embolism
CPT/HCPCS: 96372; J1650

== ENCOUNTER 2020-09-13 08:50 | Day surgery (SDC) | payer MEDICARE | END 2020-09-13 13:30 | disposition home or self-care (01) | LOC: ATC 08:50 | DX: I48.91 Unspecified atrial fibrillation (principal); I10 Essential (primary) hypertension; J44.9 Chronic obstructive pulmonary disease, unspecified; E78.5 Hyperlipidemia, unspecified; F17.210 Nicotine dependence, cigarettes, uncomplicated; Z88.5 Allergy status to narcotic agent; Z79.01 Long term (current) use of anticoagulants | CPT/HCPCS: 96372; J1650 ==

== ENCOUNTER 2020-09-14 00:30 | Day surgery (SDC) | payer MEDICARE | END 2020-09-14 16:51 | disposition home or self-care (01) | LOC: ATC 00:30 | DX: I48.91 Unspecified atrial fibrillation (principal); J44.9 Chronic obstructive pulmonary disease, unspecified; E78.5 Hyperlipidemia, unspecified; I10 Essential (primary) hypertension; F17.210 Nicotine dependence, cigarettes, uncomplicated; M19.90 Unspecified osteoarthritis, unspecified site; Z86.718 Personal history of other venous thrombosis and embolism; Z79.01 Long term (current) use of anticoagulants; Z88.5 Allergy status to narcotic agent | CPT/HCPCS: 36416; 85610; 96372; J1650 ==

== ENCOUNTER 2020-09-15 09:10 | Day surgery (SDC) | payer MEDICARE | END 2020-09-15 09:51 | disposition home or self-care (01) | LOC: ATC 09:10 | DX: I48.91 Unspecified atrial fibrillation (principal); J44.9 Chronic obstructive pulmonary disease, unspecified; E78.5 Hyperlipidemia, unspecified; I10 Essential (primary) hypertension; F17.210 Nicotine dependence, cigarettes, uncomplicated; Z86.718 Personal history of other venous thrombosis and embolism; Z88.5 Allergy status to narcotic agent; Z88.8 Allergy status to other drugs, medicaments and biological substances; Z79.02 Long term (current) use of antithrombotics/antiplatelets; Z79.01 Long term (current) use of anticoagulants | CPT/HCPCS: 85610; J1650 ==

== ENCOUNTER 2020-09-16 09:14 | Day surgery (SDC) | payer MEDICARE | END 2020-09-16 09:33 | disposition home or self-care (01) | LOC: ATC 09:14 | DX: I48.91 Unspecified atrial fibrillation (principal); I10 Essential (primary) hypertension; J44.9 Chronic obstructive pulmonary disease, unspecified; E78.5 Hyperlipidemia, unspecified; F17.210 Nicotine dependence, cigarettes, uncomplicated; Z88.5 Allergy status to narcotic agent; Z79.01 Long term (current) use of anticoagulants | CPT/HCPCS: 85610; J1650 ==

== ENCOUNTER 2020-09-17 00:42 | Day surgery (SDC) | payer MEDICARE, SELFPAY | END 2020-09-17 08:08 | disposition home or self-care (01) | LOC: ATC 00:42 | DX: I48.91 Unspecified atrial fibrillation (principal); J44.9 Chronic obstructive pulmonary disease, unspecified; I10 Essential (primary) hypertension; E78.5 Hyperlipidemia, unspecified; F17.210 Nicotine dependence, cigarettes, uncomplicated; Z86.718 Personal history of other venous thrombosis and embolism; Z79.01 Long term (current) use of anticoagulants | CPT/HCPCS: 36416; 85610; 96372; J1650 ==

== ENCOUNTER 2020-09-18 00:34 | Day surgery (SDC) | payer MEDICARE ==
--- NOTE | 2020-09-18 11:51 | NUR ---
INR IN ATC WAS 1.9.
== END 2020-09-18 11:45 | disposition home or self-care (01) ==
LOC: ATC 00:34
DX: I48.91 Unspecified atrial fibrillation (principal); I10 Essential (primary) hypertension; E78.5 Hyperlipidemia, unspecified; J44.9 Chronic obstructive pulmonary disease, unspecified; F17.210 Nicotine dependence, cigarettes, uncomplicated; Z86.718 Personal history of other venous thrombosis and embolism; Z79.01 Long term (current) use of anticoagulants
CPT/HCPCS: 36416; 85610; 96372; J1650

== ENCOUNTER 2020-09-19 00:16 | Day surgery (SDC) | payer MEDICARE ==
--- NOTE | 2020-09-19 08:23 | NUR ---
INR 2.5, INSTRUCTED PT TO FOLLOW UP WITH
== END 2020-09-19 07:56 | disposition home or self-care (01) ==
LOC: ATC 00:16
DX: I48.91 Unspecified atrial fibrillation (principal); J44.9 Chronic obstructive pulmonary disease, unspecified; I10 Essential (primary) hypertension; E78.5 Hyperlipidemia, unspecified; M19.90 Unspecified osteoarthritis, unspecified site; F17.210 Nicotine dependence, cigarettes, uncomplicated; Z86.718 Personal history of other venous thrombosis and embolism; Z88.5 Allergy status to narcotic agent; Z79.01 Long term (current) use of anticoagulants
CPT/HCPCS: 36416; 85610; J1650

== ENCOUNTER 2020-09-25 14:28 | Observation (INO) | payer MEDICARE ==
[~2020-09-25] VITALS: Ht 177.8 cm; Wt 92.3 kg
[2020-09-25] MEDS ORDERED: Percocet 5-3251 EACH PO (15:45)
[2020-09-25] MEDS ORDERED: FERROUS SULFAT325 M3 PO (15:46)
[2020-09-25] MEDS ORDERED: ASCO500 PO (15:48)
[2020-09-25] MEDS ORDERED: CLOP75 PO (15:50)
[2020-09-25 15:52] LABS: Influenza A, PCR NEGATIVE (NEGATIVE); Influenza B, PCR NEGATIVE (NEGATIVE); Resp Syncytial Virus, PCR NEGATIVE (NEGATIVE); SARS-Cov-2 (COVID-19) PCR, MMC NEGATIVE (NEGATIVE)
--- NOTE | 2020-09-25 16:29 | NUR ---
PT'S IV IN LAC IS PATENT 18 GAUGE. WNL
--- NOTE | 2020-09-25 16:33 | NUR ---
PT TO PRE OP
[2020-09-25] MEDS ORDERED: NICO21TP TOP (16:35)
--- NOTE | 2020-09-25 16:51 | NUR ---
History, Chart, Medications and Allergies reviewed before start of procedure.
--- NOTE | 2020-09-25 16:58 | NUR ---
09/25/20 1658 MARIE ORTIZ History, Chart, Medications and Allergies reviewed before start of procedure. 3-LEAD EKG REVIEWED WITH PHYSICIAN PRIOR TO START OF PROCEDURE. MONITOR INTACT WITH CONTINUOUS PULSE OXIMETRY AND INTERMITTENT BP. GENERAL ANESTHESIA WITH DR. BANG.
--- NOTE | 2020-09-25 18:39 | NUR ---
PT ARRIVED BACK TO UNIT FROM PACU. A&OX4. TRANSFERR[place] W/MINIMAL [place]. CALL LIGHT IN REACH. PROVIDING CLEARS PER ORDERS.
--- NOTE | 2020-09-25 18:41 | NUR ---
PT READING GLASSES TO ROOM WITH PT
[2020-09-25 23:09] LABS: Hematocrit 31.1 % (37.0-53.0); Hemoglobin 9.8 g/dL (13.5-17.5)
[2020-09-26 06:47] LABS: BASOPHILS ABSOLUTE AUTO 0.01 K/mm3 (0.00-0.23); BASOPHILS PERCENT AUTO 0 % (0-2); EOSINOPHILS ABSOLUTE AUTO 0.01 K/mm3 (0.00-0.68); EOSINOPHILS PERCENT AUTO 0 % (0-6); Hematocrit 28.3 % (37.0-53.0); Hemoglobin 8.9 g/dL (13.5-17.5); IMMATURE GRAN ABSOLUTE AUTO 0.02 K/mm3 (0.00-0.10); IMMATURE GRAN PERCENT AUTO 0 % (0-1); LYMPHOCYTES ABSOLUTE AUTO 1.06 K/mm3 (0.84-5.20); LYMPHOCYTES PERCENT AUTO 14 % (21-46); MONOCYTES ABSOLUTE AUTO 0.53 K/mm3 (0.16-1.47); MONOCYTES PERCENT AUTO 7 % (4-13); Mean Corpuscular HGB 27.9 pg (26.0-34.0); Mean Corpuscular HGB Conc 31.4 g/dL (31.5-36.5); Mean Corpuscular Volume 89 fL (80-100); Mean Platelet Volume 10.1 fL (9.1-12.4); NEUTROPHILS ABSOLUTE AUTO 5.77 K/mm3 (1.96-9.15); NEUTROPHILS PERCENT AUTO 78 % (41-73); Platelet Count 304 K/mm3 (150-400); RDW Coefficient Variation 17.7 % (11.7-14.2); RDW Standard Deviation 57.3 fL (35.1-46.3); Red Blood Cell Count 3.19 M/mm3 (4.30-5.90)
[2020-09-26 06:59] LABS: International Normalized Ratio 1.48; Prothrombin Time Results 15.6 Sec (9.7-11.5)
[2020-09-26 07:07] LABS: Alanine Aminotransfer (ALT/SGP 16 U/L (12-78); Albumin, Blood 3.4 g/dL (3.4-5.0); Alk Phos 88 U/L (50-136); Anion Gap 4 mmol/L (6-16); Aspartate Aminotrans (AST/SGOT 8 U/L (12-37); Bilirubin, Total 0.4 mg/dL (0.1-1.0); Blood Urea Nitrogen 9 mg/dL (8-24); CO2, Blood 25 mmol/L (21-32); Calcium, Blood 8.5 mg/dL (8.5-10.1); Chloride, Blood 108 mmol/L (98-108); Creatinine, Blood 0.75 mg/dL (0.60-1.20); Globulin, Blood 3.4 g/dL (2.2-4.0); Glomerular Filtration Rate >60 (60-); Glucose, Blood 109 mg/dL (70-99); Potassium, Blood 3.9 mmol/L (3.5-5.5); Sodium, Blood 137 mmol/L (136-145); Total Protein, Blood 6.8 g/dL (6.4-8.2)
[2020-09-26 13:00] LABS: Hemoglobin 8.8 g/dL (13.5-17.5)
--- NOTE | 2020-09-26 18:23 | NUR ---
DISCHARGE AFTER DR HURTADO ROUNDED, D/C ORDERS RECEIVED. PT IS EXCITED. CLARIFICATION W/ DR HURTADO TO STOP COUMADIN WELL PLAVIX FOR D/C. PT DECLINES W/C OUT; AMBULATES OUT STEADILY.
== END 2020-09-26 18:26 | disposition home or self-care (01) ==
LOC: SURS 14:28
PROVIDERS: Family Medicine; ADMIT Surgery
PROC: 0DJD8ZZ Inspection of Lower Intestinal Tract, Via Natural or Artificial Opening Endoscopic (ICD-10-PCS; principal; 2020-09-25 17:15)
DX: K57.31 Diverticulosis of large intestine without perforation or abscess with bleeding (principal); D62 Acute posthemorrhagic anemia; I10 Essential (primary) hypertension; I73.9 Peripheral vascular disease, unspecified; F41.9 Anxiety disorder, unspecified; F32.9 Major depressive disorder, single episode, unspecified; Z79.01 Long term (current) use of anticoagulants; Z79.02 Long term (current) use of antithrombotics/antiplatelets; Z88.5 Allergy status to narcotic agent; Z87.891 Personal history of nicotine dependence; Z20.822 Contact with and (suspected) exposure to COVID-19
CPT/HCPCS: 0241U; 36415; 80053; 85014; 85018; 85025; 85610; A9270; G0378; J1100; J2370; J2405; J2704; J3010; J7120

== ENCOUNTER 2021-08-13 06:37 | Inpatient (IN) | payer MEDICARE ==
[~2021-08-13] VITALS: Ht 177.8 cm; Wt 91.1 kg
[~2021-08-13 06:37] MED LIST changes: +ASCO500 PO; +FERROUS SULFAT325 M3 PO; +NICO21TP TOP; +Percocet 5-3251 EACH PO
[2021-08-13] MEDS ORDERED: WARF6 PO ×2 (06:42)
[2021-08-13] MEDS ORDERED: Percocet 5-3251 EACH PO ×2 (06:42)
--- NOTE | 2021-08-13 12:00 | NUR ---
ICU ADMISSION / Sana SANDY & SRAVANI: PT ARRIVED TO ICU-03 AT APPROX 0930, BEDSIDE REPORT RECEIVED FROM [facility] RNs AT THAT TIME. ON ARRIVAL, THE PT IS AWAKE, A&O TO ALL, PLEASANT & JOKING W/ STAFF MEMBERS. HE DENIES PAIN AT THAT TIME. WHEEZING NOTED IN LOWER LUNG LOBES, PT STS "OCCASIONALLY" USING AN ALBUTEROL INHALER AT HOME. MONITOR SHOWS SR W/ HR 70s, PT HYPERTENSIVE & STS HAVING MISSED AM METOPROLOL & DIURETIC DOSE PRIOR TO PROCEDURE. PT STS BEING HUNGRY CURRENTLY & HAVING A GOOD APPETITE AT BASELINE. HAS NOT HAD URGE TO VOID URINE, BUT GENERALLY DOES SO W/O DIFFICULTY. SKIN CONDITION OVERALL INTACT. 6FR SHEATH IN PLACE TO LEFT FEMORAL ARTERY W/ 5FR INFUSION CATHETER ALSO IN PLACE AT SITE. THERE IS A SMALL AMNT OF SS DRAINAGE NOTED AT PUNCTURE SITE UNDER DRESSING NOTED, THIS IS UNCHANGED SINCE PT ARRIVAL TO ICU. SURROUNDING AREA IS SOFT & NONTENDER W/ NO BLEEDING, BRUISING OR HEMATOMA FORMATION NOTED. DR Sandy AT BEDSIDE TO EVAL PT. THIS RN HAS DISCUSSED HEPARIN & TPA ORDERS W/ THE PROVIDER. HE WOULD LIKE THE PT's HEPARIN TO INFUSE THROUGH THE SIDEPORT OF THE SHEATH & THE TPA TO INFUSE THROUGH THE ATTACHED INFUSION CATHETER. HE WOULD LIKE FIBRINOGEN LABS TO BE DRAWN ROUTINELY UNTIL TPA DISCONTINUED. TPA & HEPARIN SHOULD INFUSE CONTINUOUSLY UNTIL THE PT RETURNS TO THE [facility] TOMORROW AM FOR F/U PROCEDURE. DR Sandy STS THAT HE WILL BE CONSULTING THE HOSPITALIST GROUP FOR ROUTINE PT MANAGEMENT, BUT IS OKAY ORDERING THE PT's HOME MEDICATIONS PRIOR TO THIS & IS OKAY W/ THIS RN GIVING DOSES OF FERROUS SULFATE, METOPROLOL & HYDROCHLOROTHIAZIDE THIS MORNING THE PT MISSED HIS AM DOSES. PRN ORDERS FOR PAIN MANAGEMENT ALSO TO BE PLACED. DR LASSITER HAS COME TO BEDSIDE TO EVAL THE PT SHORTLY AFTER BEING CONSULTED BY DR Sandy. THE PT HAS SOME C/O ITCHING R/T REPERFUSION OF RLE & ORDERS OBTAINED FOR BENADRYL. THE PT HAS TAKEN THIS W/ RESOLUTION OF ITCHING SENSATION. WILL CONTINUE TO MONITOR & UPDATE NEEDED.
--- NOTE | 2021-08-13 17:38 | NUR ---
SHIFT SUMMARY: NO ACUTE CHANGES SINCE PRIOR UPDATES. PT REMAINS A&O TO ALL, PLEASANT & COOPERATIVE. HE DOES HAVE C/O INCREASING PAIN TO RLE APPROX EVERY 1-2 HRS W/ PRN DILAUDID GIVEN PER EMAR. HE HAS REQUESTED THAT THIS RN CALLS THE PROVIDER TO SEE IF HE CAN HAVE HIS HOME DOSE OF PERCOCET, IT GENERALLY WORKS BETTER TO RELIEVE HIS PAIN FOR LONGER PERIODS OF TIME. THIS RN HAS CONTACTED DR Allen CONRAD W/ REGARDS TO PT's REQUEST & ORDERS PLACED. LS CLEAR T/O, PT ON RA W/ O2 SATS > 92%. MONITOR SHOWS SR W/ HR 70s, HTN W/ INCREASED ACTIVITY/ PAIN, IMPROVED AT REST. PT HAS NO GI COMPLAINTS & IS TOLERATING PO INTAKE WELL. VOIDS URINE W/O DIFFICULTY USING URINAL INDEPENDENTLY WHILE IN BED. SKIN CONDITION OVERALL INTACT. SHEATH REMAINS IN PLACE TO LEFT GROIN W/ SMALL AMNT SS DRAINAGE NOTED UNDER DRESSING, UNCHANGED & BEGINNING TO DRY. HEPARIN & TPA INFUSING PER ORDERS. PULSES TO BLE REMAIN FAINT BUT PALPABLE. WILL CONTINUE TO MONITOR & REPORT OFF TO ONCOMING RN.
--- NOTE | 2021-08-13 21:41 | NUR ---
ASSESSMENT AT REPORT SHOWED CONSISTENCY IN THE RIGHT GROIN SITE, REASSESSMENT AT 2100 SHOWS SLIGHT LEAKING AT SITE, TENDER TO PALPATION. LAB DRAW DONE, WILL REPORT FINDINGS TO .
--- NOTE | 2021-08-13 23:00 | NUR ---
RECEIVED FIBRINOGEN LEVEL BACK AND REPORTED TO . ORDERS RECEIVED TO LOWER THE tPA TO 0.25MG/HR OR 12.5ML AND INCREASE HEPARIN TO 750U/HR OR 15ML. DONE, NEXT LAB DUE AT 0330. PT SLEEPING, RIGHT GROIN SITE STILL OOZING SOME.
--- NOTE | 2021-08-14 04:15 | NUR ---
FIBRINOGEN DROPPED TO 87, CALL TO . STOP tPA, CONSULT PHARMACY FOR HEPARIN DOSING. PT IS CONTINUING TO OOZE FROM THE RIGHT GROIN, INTERMITTENTLY. DRIED BLOOD TO THE OUTSIDE OF THE THIGH, INSIDE GROIN WITH SLIGHT DAMPNESS. SMALL AREA OF FIRMNESS AROUND THE GROIN, NO CHANGE IN COLOR OR SIZE. DAVID JUST HAD AN 8 BEAT RUN OF V-TACH. NO SYMPTOMS, PT PLAYING A VIDEO GAME, CHATTING.
--- NOTE | 2021-08-14 05:28 | NUR ---
DAVID HAS SLEPT A LITTLE BIT, HE CONTINUES TO HAVE FAINT PULSES PALPABLE ON THE RIGHT FOOT/POSTERIOR ANKLE. GOOD COLOR,TEMP AND CAP REFILL. THE VESSELS INSIDE THE RIGHT LEG FEELS FULL, BULGING. LEFT GROIN CONTINUES WITH OCC. OOZING. TPA HAS BEEN TURNED OFF AND HEPARIN IS PER PHARMACY. KEEPING PATIENT NPO AT THIS POINT FOR RETURN TO [facility]. PT IS HOPING TO RETURN HOME TODAY FOLLOWING PROCEDURE.
--- NOTE | 2021-08-14 08:44 | NUR ---
PT RESTING IN BED. A/O X4, HAS TINGLING IN FEET BUT TOLERABLE FOR NOW. PT HAS SHEATH TO L GROIN WHERE TPA AND HEPARIN WERE RUNNING. TPA WAS STOPPED LAST NIGHT DUE TO FIBRINOGEN RESULTS. HEPARIN PER PHARMACY. SOME OLD DRIED BLOOD AT SHEATH SITE BUT SITE IS STABLE. PT IS TO GO BACK TO MACHINE LEATHER TRIMMER TODAY. NPO FOR NOW. NO REQUESTS AT THIS TIME. CALL LIGHT AND PHONE IN REACH.
[2021-08-14 09:44] LABS: BASOPHILS ABSOLUTE AUTO 0.04 K/mm3 (0.00-0.23); BASOPHILS PERCENT AUTO 1 % (0-2); EOSINOPHILS ABSOLUTE AUTO 0.14 K/mm3 (0.00-0.68); EOSINOPHILS PERCENT AUTO 2 % (0-6); Hematocrit 41.9 % (37.0-53.0); Hemoglobin 14.1 g/dL (13.5-17.5); IMMATURE GRAN ABSOLUTE AUTO 0.03 K/mm3 (0.00-0.10); IMMATURE GRAN PERCENT AUTO 0 % (0-1); LYMPHOCYTES ABSOLUTE AUTO 1.39 K/mm3 (0.84-5.20); LYMPHOCYTES PERCENT AUTO 18 % (21-46); MONOCYTES ABSOLUTE AUTO 1.09 K/mm3 (0.16-1.47); MONOCYTES PERCENT AUTO 14 % (4-13); Mean Corpuscular HGB 32.6 pg (26.0-34.0); Mean Corpuscular HGB Conc 33.7 g/dL (31.5-36.5); Mean Corpuscular Volume 97 fL (80-100); NEUTROPHILS ABSOLUTE AUTO 5.19 K/mm3 (1.96-9.15); NEUTROPHILS PERCENT AUTO 66 % (41-73); Platelet Count 143 K/mm3 (150-400); RDW Coefficient Variation 13.3 % (11.7-14.2); RDW Standard Deviation 47.4 fL (35.1-46.3); Red Blood Cell Count 4.33 M/mm3 (4.30-5.90); White Blood Cell Count 7.88 K/mm3 (4.00-11.30)
[2021-08-14 10:03] LABS: Anion Gap 6 mmol/L (6-16); Blood Urea Nitrogen 16 mg/dL (8-24); Bun/Creatinine Ratio 17.3 (12.0-20.0); CO2, Blood 27 mmol/L (21-32); Calcium, Blood 8.9 mg/dL (8.5-10.1); Chloride, Blood 104 mmol/L (98-108); Creatinine, Blood 0.92 mg/dL (0.60-1.20); Glomerular Filtration Rate >60 (60-); Glucose, Blood 112 mg/dL (70-99); Potassium, Blood 3.5 mmol/L (3.5-5.5); Sodium, Blood 137 mmol/L (136-145)
--- NOTE | 2021-08-14 11:30 | NUR ---
Pt. is laying in bed and awake. Pt. welcomes my visit. Pt. is unsettled regarding his prognosis. Listen empathetically and establish rapport. Facilitated a life review. Pt. displays evidence of begin marginalized because of his disability. Through pastoral care and theraputic listening, begin to normalize his life experience. Pt. displays evidence of a personal beena, but disability keeps him somewhat isolated. Pt. displays evidence of encouragement and trust. Prayed with pt. Pt. verbalized gratitude for the spiritual care visit.
--- NOTE | 2021-08-14 18:13 | NUR ---
PT AGITATED TODAY ABOUT PROCEDURE TAKING SO LONG TO GET DONE. PT HAS BEEN NPO ALL DAY BECAUSE DATA TRANSCRIBER WAS GOING TO TAKE HIM BACK AT ANY TIME DURING THE DAY. PT WENT FOR PROCEDURE AT 1710. HAS SHEATH IN PLACE TO L GROIN WITH HEPARIN INFUSING. R FOOT IS PINK AND WARM WITH FAINT PULSES. L GROIN HAS DRIED BLOOD, NO NEW BLEEDING. DILAUDID A COUPLE TIMES FOR REPROFUSION PAIN TO R FOOT. NO SIGN OF DISTRESS ON HIS WAY TO DATA TRANSCRIBER.
--- NOTE | 2021-08-14 22:30 | NUR ---
ASSUMPTION OF CARE RECEIVED REPORT FROM JA HARDEN AT 1900, PT RETURNED FROM ADDING MACHINE MECHANIC AT 1916 AND RECEIVED BEDSIDE REPORT FROM JA CHEEK. PT HAS ARTERIAL SHEATH TO LEFT GROIN, SITE IS SOFT, NO HEMATOMA PRESENT AND NO OOZING. PT RECEIVED A STENT TO RIGHT FEMORAL-TIBIAL BYPASS FOR OCCLUSION AND IS EXPECTED TO RETURN TO ADDING MACHINE MECHANIC FOR FURTHER INTERVENTION. TPA IS RUNNING THROUGH SHEATH AT 0.5MG/HR, HEPARIN IS INFUSING AT 10ML/HR INTO THE SIDE PORT OF SHEATH. VS ARE CURRENTLY STABLE, HR NSR WITH RATE IN 60'S. ON ROOM AIR, SPO2 >92%. PULSES BY DOPPLER TO BILATERAL LOWER EXTREMITIES. RLE CAP REFILL >3 SECONDS, LLE <3 SECONDS. FAINT BILATERAL D. PEDIS PULSES. PT USING URINAL WITHOUT ASSISTANCE, A/O X4, EXPRESSES NEEDS WELL. PT PLACED IN REVERSE TRENDELENBERG FOR DINNER TO PREVENT FLEXION AT THE GROIN. ONCE REPLACED SUPINE, OOZING AT FEMORAL SITE NOTED. DRESSING CHANGED. MEDICATED PT FOR 5/10 PAIN AT GROIN SITE. ORDERS REVIEWED WILL TREAT PRESCRIBED.
--- NOTE | 2021-08-14 23:00 | NUR ---
2146: CALL PLACED TO DR. LYNCH FOR INCREASED OOZING AND NOTABLE SWELLING AT LEFT FEMORAL SHEATH. ADVISED TO PLACE FEMSTOP WITH ENOUGH PRESSURE TO ALLOW FOR PEDAL PULSES IN LLE. DOPPLER POSTERIOR TIBIAL PULSES IN BLE. LLE REMAINS WARM, CAP REFILL <3 SECONDS AND PINK. 2230: MEDICATED WITH PRN DILAUDID FOR PAIN IN RIGHT LOWER CALF. PT STATED HE CAN FEEL A PULSATING SENSATION IN RIGHT CALF AND IS PAINFUL. PER REPORT, THE OCCLUSION IS IN THE RIGHT LOWER CALF. NO SIGNS OF SWELLING NOTED.
--- NOTE | 2021-08-15 05:49 | NUR ---
PT REMAINS A/O X4, FOLLOWS COMMANDS AND USES CALL LIGHT APPROPRIATELY. O2 INCREASED TO 3L FOR SPO2 OF 90%. LUNGS REMAIN CLEAR WITH UNPRODUCTIVE COUGH. HR REMAINED NSR WITH RATE IN 60-80'S. BP STABLE. PT WAS NPO AFTER MIDNIGHT FOR ANTICIPATED TIME BROKER PROCEDURE TODAY. LEFT FEMORAL SHEATH REMAINS IN PLACE WITH TPA INFUSING INTO SHEATH AND HEPARIN INTO SIDE PORT. FIBRINOGEN OF 293 AROUND MIDNIGHT. HEPARIN AT 500 UNITS/HR, TPA AT 0.5MG/HR. PULSES REMAIN DOPPLER ONLY IN BILATERAL POSTERIOR TIBIAL, FEET ARE WARM TO TOUCH. RIGHT FOOT AND CALF ARE TINGLING AND HE REPORTS PAIN FREQUENTLY, CAP REFILL >3 SEC. LEFT FOOT CAP REFILL <3 SEC AND SPO2 PROBE APPLIED TO 3RD TOE WITH GOOD READING. FEM-STOP REMAINS IN PLACE TO LEFT GROIN, SINCE APPLIED, BLOOD HAS STOPPED LEAKING FROM DRESSING, BUT SITE IS OOZY. MEDICATED WITH DILAUDID AND OXYCODONE PER EMAR FOR RIGHT CALF AND FOOT PAIN. WILL REPORT TO ONCOMING SHIFT WHEN AVAILABLE.
--- NOTE | 2021-08-15 07:27 | NUR ---
PT RESTING IN BED. A/O X4. PAIN/TINGLING/REPROFUSION TO R FOOT IS TOLERABLE AT THE MOMENT. PT HAS SHEATH TO L GROIN WITH TPA AND HEPARIN INFUSING. PT IS AWARE OF RESTRICTIONS RELATED TO L GROIN SHEATH. NO NEW BLOOD AT SITE JUST DRIED OLD BLOOD. FEMSTOP IN PLACE WITHOUT PRESSURE PER DR. LYNCH RECOMMENDATIONS. ONLY ABLE TO FIND PT DOPPLER PULSES. BILAT FEET ARE PINK AND WARM. NO SIGN OF DISTRESS.
--- NOTE | 2021-08-15 11:52 | NUR ---
Pt. is awake in bed and welcomes my visit. Pt. is agitated about not getting accurate and timely info from his PCP. Pt. is also unsettled by delays in his tests (ie angiogram) currently at [facility]. Listen empathetically and attempt to normalize the pt. experience. With theraputic listening the pt. displays evidence of lower stress. Develop rapport and explore issues of beena and belief. Pt. displays evidence of interest and spiritual engagement. Prayed with pt. Pt. verbalized gratitude for the spiritual care visit, and invited me to return.
--- NOTE | 2021-08-15 12:10 | NUR ---
PT TAKEN TO POT SANDER WITH SHEATH IN PLACE. SITE IS VERY TENDER BUT NO NEW BLEEDING FROM SITE. NO SIGN OF DISTRESS HE LEAVES.
--- NOTE | 2021-08-15 13:48 | NUR ---
PT BACK FROM FIELD STAFF MANAGER. DROWSY BUT ORIENTED. ANGIOSEAL TO L GROIN SUCCESSFUL. DOPPLER PT PULSES BILAT. STILL NO DORSALIS PEDAL PULSSES. AWAITING HEPARIN ORDERS FROM PHARMACY. PT INSTRUCTED AGAIN TO NOT LIFT HEAD OR FLEX AT THE HIP. PT VERBALIZES UNDERSTANDING.
--- NOTE | 2021-08-15 17:49 | NUR ---
SUMMARY PT A/O X4. WENT BACK TO SURFACE BOSS TODAY AND HAD MORE CLOTS REMOVED. PT CAME BACK WITH ANGIOSEAL TO L GROIN. SITE IS STABLE, HAS LIGHT PURPLE BRUISING AROUND SITE FROM LAST NIGHT. BRUISING IS SOFT WELL. PT IS ON HEPARIN AND WILL BE BRIDGED TO COUMADIN. DR. LYNCH OKAY WITH PT GOING HOME TONIGHT BUT HE BECOMES VERY ANXIOUS ABOUT LEAVING WORRYING ABOUT MEDS AND IF HE HAS PAIN AT HOME. ULTIMATELY DECIDED TO STAY AND DISCHARGE TOMORROW. PT ORDERED FOOD FROM [employer] AND HAD IT DELIVERED.
[2021-08-15 19:16] LABS: International Normalized Ratio 1.07; Prothrombin Time Results 11.2 Sec (9.7-11.5)
--- NOTE | 2021-08-15 20:00 | NUR ---
ASSUMED CARE OF PT AT 1915. REPORT RECEIVED. PT PRESENTS IN BED. HAD CALLED RN AND A MASTIC SPRAYER INTO ROOM. PT VOICING FRUSTRATIONS CONCERNING HIS STAY HERE AT THE HOSPITAL. STATED HE WANTED TO GO HOME BUT WAS TOLD THAT HE WAS TO BE HERE THROUGH THE NIGHT. THIS RN EXCUSED RN AND MASTIC SPRAYER WHEN ASSUMPTION OF CARE TOOK PLACE. DID SPEAK WITH PT CONCERNING POST PROCEDURAL CARE. ANSWERED QUESTIONS FOR PT WHERE HE STATED THAT HE WAS NOW IN AGREEMENT TO PLAN OF CARE. TEACHING DONE ON DISEASE PROCESS AND PERIPHERAL PROCEDURE, AND EXPECTATIONS FOR THE RECOVERY PERIOD, AND FOLLOW UP WHEN HE GOES HOME. PT VERBALIZED UNDERSTANDING. PT CURRENTLY CALM AND COOPERATIVE WITH CARE AND ASSESSMENT. LEFT GROIN ACCESS SITE NOTED WITH SOME DRIED OOZING UNDER OPSITE, AND SMALL HEMATOMA. DID CHANGE DRESSING AND CLEANSED SITE. NO ACTIVE OOZING TO NOTE. DID REDUCE HEMATOMA WITH DIRECT PRESSURE. PT DOES TOLERATE THIS WELL. SOME SITE TENDERNESS. WILL REVIEW CHART AND PLAN OF CARE FOR THIS PT.
--- NOTE | 2021-08-16 03:34 | NUR ---
NOTED RETURN OF SAME SIZE SMALL HEMATOMA AT LEFT GROIN SITE. NO OOZING NOTED. WILL MONITOR. WILL REDUCE ENDURATION AGAIN IF NEEDED. DURING EVENING, DID DO ORTHOSTATIC BLOOD PRESSURES WHICH DID NOT SHOW ANY SIGNIFICANT CHANGES. PT HAS BEEN ABLE TO GET OUT OF BED AND AMBULATE IN ROOM SOME TONIGHT. PT ACKNOWLEDGES HE WILL BE ABLE TO PROVIDE HIS OWN CARE AT HOME. DOES HAVE A FRIEND THAT MAY BE ABLE TO ASSIST HIM SOME. BLOOD PRESSURES HAVE BEEN SOMEWHAT LOWER THIS MORNING. THIS SUBJECT TO PT LAYING ON HIS SIDE WITH ARM FOR BP ELEVATED. PT ASYMPTOMATIC. WILL CONTINUE TO MONITOR.
[2021-08-16 05:25] LABS: BASOPHILS ABSOLUTE AUTO 0.03 K/mm3 (0.00-0.23); BASOPHILS PERCENT AUTO 0 % (0-2); EOSINOPHILS ABSOLUTE AUTO 0.19 K/mm3 (0.00-0.68); EOSINOPHILS PERCENT AUTO 2 % (0-6); Hematocrit 42.2 % (37.0-53.0); Hemoglobin 14.1 g/dL (13.5-17.5); IMMATURE GRAN ABSOLUTE AUTO 0.05 K/mm3 (0.00-0.10); IMMATURE GRAN PERCENT AUTO 1 % (0-1); LYMPHOCYTES ABSOLUTE AUTO 1.77 K/mm3 (0.84-5.20); LYMPHOCYTES PERCENT AUTO 18 % (21-46); MONOCYTES ABSOLUTE AUTO 1.22 K/mm3 (0.16-1.47); MONOCYTES PERCENT AUTO 12 % (4-13); Mean Corpuscular HGB 32.3 pg (26.0-34.0); Mean Corpuscular HGB Conc 33.4 g/dL (31.5-36.5); Mean Corpuscular Volume 97 fL (80-100); Mean Platelet Volume 10.1 fL (9.1-12.4); NEUTROPHILS ABSOLUTE AUTO 6.72 K/mm3 (1.96-9.15); NEUTROPHILS PERCENT AUTO 67 % (41-73); Platelet Count 130 K/mm3 (150-400); RDW Coefficient Variation 13.2 % (11.7-14.2); Red Blood Cell Count 4.36 M/mm3 (4.30-5.90); White Blood Cell Count 9.98 K/mm3 (4.00-11.30)
[2021-08-16 05:41] LABS: Anion Gap 6 mmol/L (6-16); Blood Urea Nitrogen 10 mg/dL (8-24); Bun/Creatinine Ratio 12.4 (12.0-20.0); CO2, Blood 26 mmol/L (21-32); Calcium, Blood 8.8 mg/dL (8.5-10.1); Chloride, Blood 107 mmol/L (98-108); Creatinine, Blood 0.81 mg/dL (0.60-1.20); Glomerular Filtration Rate >60 (60-); Glucose, Blood 121 mg/dL (70-99); Potassium, Blood 3.8 mmol/L (3.5-5.5); Sodium, Blood 139 mmol/L (136-145)
[2021-08-16 05:42] LABS: International Normalized Ratio 1.04; Prothrombin Time Results 10.9 Sec (9.7-11.5)
--- NOTE | 2021-08-16 06:06 | NUR ---
PT HAS BEEN UP IN UNIT AND AMBULATED WITHOUT COMPLAINTS. PT HAS NO VERTIGO. PT STATES THAT HE IS OPTIMISTIC ABOUT GOING HOME THIS DAY. WILL CONTINUE TO MONITOR PT, AND WILL REPORT OFF TO ONCOMING RN.
--- NOTE | 2021-08-16 07:06 | NUR ---
PT HAS BEEN UP TO AMBULATE SEVERAL TIMES WITHOUT DIFFICULTIES. PT MEDICATED THIS AM WITH ONE PERCOCET FOR COMPLAINT OF LEG PAIN. OF NOTE: PT HAS SMALL HEMATOMA AT LEFT GROIN SITE. THIS WAS REDUCED AGAIN TO SOFT. WILL CONTINUE TO MONITOR, AND REPORT TO ONCOMING RN.
--- NOTE | 2021-08-16 10:42 | NUR ---
Pt. was getting dressed in anticipation of discharge. Pt. welcomes my visit. Pt. is unsettled about a rash has detected. Listen empathetically, and normalize the pt. experience. The Pt. is generally positive and verbalizes gratitude for the care he has recieved. Prayed for Pt. Pt. verbalizes gratitude for his spiritual care visit.
--- NOTE | 2021-08-16 11:19 | NUR ---
DISCHARGE INSTRUCTIONS GONE OVER WITH PT. DISCUSSED LOVENOX/INR APPTS WITH PT THAT ARE SCHEDULED WITH ATC. PT INSTRUCTED ON FOLLOW UP CARE AND PROCEDURAL DISCHARGE INSTRUCTIONS. BELONGINGS GATHERED AND GIVEN TO PT. PT ESCORTED OUT VIA WHEELCHAIR.
== END 2021-08-16 11:37 | disposition home or self-care (01) | DRG 272 ==
LOC: MHTC 06:37 → ICUE 06:37 → MHTC 08-14 16:30 → ICUE 08-14 16:30
PROVIDERS: ADMIT Internal Medicine
PROC: 3E05317 Introduction of Other Thrombolytic into Peripheral Artery, Percutaneous Approach (ICD-10-PCS; principal; 2021-08-13)
PROC: 047R34Z Dilation of Right Posterior Tibial Artery with Drug-eluting Intraluminal Device, Percutaneous Approach (ICD-10-PCS; 2021-08-14)
PROC: 3E05317 Introduction of Other Thrombolytic into Peripheral Artery, Percutaneous Approach (ICD-10-PCS; 2021-08-14)
PROC: 04CR3ZZ Extirpation of Matter from Right Posterior Tibial Artery, Percutaneous Approach (ICD-10-PCS; 2021-08-14)
PROC: 047R3ZZ Dilation of Right Posterior Tibial Artery, Percutaneous Approach (ICD-10-PCS; 2021-08-15)
PROC: X2CS3T7 Extirpation of Matter from Right Lower Extremity Artery using Computer-aided Mechanical Aspiration, Percutaneous Approach, New Technology Group 7 (ICD-10-PCS; 2021-08-15)
DX: T82.868A Thrombosis due to vascular prosthetic devices, implants and grafts, initial encounter (principal); I10 Essential (primary) hypertension; J44.9 Chronic obstructive pulmonary disease, unspecified; F41.9 Anxiety disorder, unspecified; F32.A Depression, unspecified; Y83.2 Surgical operation with anastomosis, bypass or graft as the cause of abnormal reaction of the patient, or of later complication, without mention of misadventure at the time of the procedure; Z87.891 Personal history of nicotine dependence
CPT/HCPCS: 36415; 37184; 37211; 37213; 37214; 37224; 37230; 75625; 75716; 75774; 76937; 80048; 85018; 85025; 85347; 85384; 85610; 85730; 90686; 99152; 99153; A9270; C1725; C1751; C1757; C1760; C1769; C1874; C1887; C1894; J1170; J1644; J1650; J2250; J2997; J3010; J7030; J7040; J7050; Q9967

== ENCOUNTER 2021-08-17 14:21 | Day surgery (SDC) | payer MEDICARE, OTHER ==
[~2021-08-17 14:21] MED LIST changes: +WARF6 PO
--- NOTE | 2021-08-17 14:48 | NUR ---
FINGERSTICK INR = 1.7 TODAY.
== END 2021-08-17 14:35 | disposition home or self-care (01) ==
LOC: ATC 14:21
DX: I73.9 Peripheral vascular disease, unspecified (principal)
CPT/HCPCS: 36416; 96372; J1650

== ENCOUNTER 2021-08-18 00:58 | Day surgery (SDC) | payer MEDICARE ==
--- NOTE | 2021-08-18 15:11 | NUR ---
FINGERSTICK INR IS 1.9 TODAY. PT TO RETURN TOMORROW.
== END 2021-08-18 14:25 | disposition home or self-care (01) ==
LOC: ATC 00:58
DX: I73.9 Peripheral vascular disease, unspecified (principal)
CPT/HCPCS: J1650

== ENCOUNTER 2021-08-19 01:06 | Day surgery (SDC) | payer MEDICARE | END 2021-08-19 09:35 | disposition home or self-care (01) | LOC: ATC 01:06 | DX: I73.9 Peripheral vascular disease, unspecified (principal); I74.9 Embolism and thrombosis of unspecified artery | CPT/HCPCS: 36416; 99211 ==